=== PATIENT | male | born 1965 | race Caucasian/White ===

== ENCOUNTER 2019-10-03 17:28 | Emergency (ER) | payer BC, OTHER ==
[2019-10-03] MEDS ORDERED: Lidocaine 1% with EPINEPHrine 1:100,000 20 ML MDV INJECT ONE (18:34)
[2019-10-03] MEDS ORDERED: Sulfamethoxazole/Trimethoprim 800-160 MG Tab PO ONE (18:38)
[2019-10-03] MEDS ORDERED: Cephalexin 500 MG Cap PO ONE (18:38)
--- NOTE | 2019-10-03 19:04 | EDM.PDOC ---
ED HPI GENERAL MEDICAL PROBLEM - General Chief Complaint: Lower Extremity Injury/Pain Stated Complaint: LUMP ON LEG Time Seen by Provider: 10/03/19 18:59 Source of Information: Reports: Patient History Limitations: Reports: No Limitations - History of Present Illness INITIAL COMMENTS - FREE TEXT/NARRATIVE: Patient is a 53-year-old male with no significant past medical history presenting with a chief complaint of bump to the right inner thigh. Patient states he notes that is been there for several days. Patient has noted some scant discharge from the area. Patient denies any associated fevers, chills, nausea, vomiting. Patient does have pain in the area which does not radiate. Patient denies any dysuria or hematuria. Pmhx: None Pshx: None Family Hx: noncontributory Smoking history? no Etoh use? none Drug use? none In addition to that documented in the HPI above, the additional ROS was obtained : Constitutional: Denies fevers or chills Eyes: Denies vision changes ENMT: Denies sore throat CV: Denies chest pain Resp: Denies SOB GI: Denies vomiting or diarrhea : Denies painful urination MSK: Denies recent trauma Skin: Per HPI Neuro: Denies new numbness or tingling or weakness Endocrine: Denies unexpected weight loss Heme: Denies bleeding disorders I have reviewed the triage vital signs Const: Well nourished, well developed, appears stated age Eyes: PERRL, no conjunctival injection HENT: NCAT, Neck supple without meningismus CV: RRR, Warm, well-perfused extremities RESP: CTAB, Unlabored respiratory effort GI: soft, non-tender, non-distended, no masses MSK: No gross deformities appreciated Skin: Patient has warmth and erythema to the right medial thigh area. Patient has central area of fluctuance with pustular discharge. No extension into the perineum or to the scrotum. 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 Sensation and motor function of extremities grossly intact. Psych: Appropriate mood and affect Assessment and plan: Patient 53-year-old male presenting with cellulitis with abscess. Patient has no evidence of sepsis or systemic infection. Patient had I&D performed in the emergency department with no immediate complications. Patient started on oral antibiotics. Patient given strict return precautions. The area of cellulitis was marked with a marker. Indication: Abscess Supervising Architect: Janet Indications, risks, and benefits explained to patient and verbal informed consent obtained. Correct patient and procedure type was verified. 1) The patient was anesthetized using 8 cc lidocaine 1% w/epinephrine 2) Abscess Location: Right inner thigh 3) Abscess Size: 2 to 3 cm 4) Procedure description: A limited scalpel was used to incise the abscess. Blunt forceps were used for blunt dissection and breaking up of loculations. Copious pus was drained. Sterile dressing was placed. A clean dressing was applied. The patient tolerated the procedure with some minimal discomfort. Right Leg Pain Score (Numeric/FACES): 3 - Related Data Allergies Allergy/AdvReac Type Severity Reaction Status Date / Time banana [Banana] Allergy Difficulty Verified 12/20/13 15:26 Breathing grapefruit [Grapefruit] Allergy Diarrhea Verified 12/20/13 15:26 [place] Allergy Rash Verified 10/03/19 17:46 pineapple Allergy Rash Verified 10/03/19 17:46 [place] Allergy Rash Uncoded 12/20/13 15:26 Oranges Allergy Rash Uncoded 12/20/13 15:26 Home Meds: Home Meds Cephalexin [Keflex] 500 mg PO TID #21 capsule 10/03/19 [Rx] Sulfamethoxazole/Trimethoprim [Bactrim Ds Tablet] 1 each PO BID #10 tablet 10/03 [Rx] Past Medical History Other Musculoskeletal History: Hernia repair, broken blood vessel in gluteus laci. Psychiatric History: Reports: Anxiety, PTSD - Infectious Disease History Infectious Disease History: Reports: Chicken Pox - Past Surgical History Musculoskeletal Surgical History: Reports: Amputation Social & Family History - Tobacco Use Smoking Status *Q: Current Every Day Smoker Years of Tobacco use: 30 Packs/Tins Daily: 0.1 - Caffeine Use Caffeine Use: Reports: Coffee - Recreational Drug Use Recreational Drug Use: No Review of Systems - Review of Systems Review Of Systems: See Below ED EXAM, GENERAL - Physical Exam Exam: See Below Course - Vital Signs Last Recorded V/S: Last Vital Signs Temp 36.5 C 10/03/19 17:48 Pulse 102 H 10/03/19 17:48 Resp 16 10/03/19 17:48 BP 133/94 H 10/03/19 17:48 Pulse Ox 95 10/03/19 17:48 - Orders/Labs/Meds Meds: Medications Discontinued Medications Generic Name Dose Route Start Last Admin Trade Name Quynh PRN Reason Stop Dose Admin Cephalexin 500 mg 10/03/19 18:38 Keflex PO 10/03/19 18:39 ONETIME ONE Lidocaine/Epinephrine 20 ml 10/03/19 18:34 Xylocaine 1% With Epinephrine 1:100,000 INJECT 10/03/19 18:35 ONETIME ONE Trimethoprim/Sulfamethoxazole 1 tab 10/03/19 18:38 Septra Ds PO 10/03/19 18:39 ONETIME ONE Departure - Departure Time of Disposition: 19:03 Disposition: Home, Self-Care 01 Clinical Impression: Thigh abscess - Discharge Information Prescriptions: Cephalexin [Keflex] 500 mg PO TID #21 capsule Sulfamethoxazole/Trimethoprim [Bactrim Ds Tablet] 1 each PO BID #10 tablet Referrals: PCP,None [Primary Care Provider] - Sepsis Event Note - Evaluation Sepsis Screening Result: No Definite Risk - Focused Exam Vital Signs: Vital Signs Temp Pulse Resp BP Pulse Ox 10/03/19 17:48 36.5 C 102 H 16 133/94 H 95 Date Exam was Performed: 10/03/19 Time Exam was Performed: 18:59
== END 2019-10-03 19:25 | disposition home or self-care (01) ==
LOC: MW.ED 17:28
DX: L02.415 Cutaneous abscess of right lower limb (principal); F17.210 Nicotine dependence, cigarettes, uncomplicated; F41.9 Anxiety disorder, unspecified; Z91.018 Allergy to other foods
CPT/HCPCS: 10060; 99282; A9270

== ENCOUNTER 2023-05-03 13:44 | Emergency (ER) | payer OTHER, BC ==
[2023-05-03 14:17] LABS: BASOPHILS PERCENT AUTO 0.2 % (0.0-1.5); EOSINOPHILS PERCENT AUTO 0.2 % (0.0-7.0); HEMATOCRIT 44.3 % (38.0-50.0); HEMOGLOBIN 15.8 g/dL (13.0-17.0); LYMPHOCYTES ABSOLUTE AUTO 0.5 K/uL (0.6-2.4); LYMPHOCYTES PERCENT AUTO 9.1 % (16.0-40.0); MEAN CORPUSCULAR HEMOGLOBIN 32.6 pg (27.0-32.0); MEAN CORPUSCULAR HGB CONC 35.7 g/dL (31.0-37.0); MEAN CORPUSCULAR VOLUME 91.3 fL (80.0-98.0); MONOCYTES ABSOLUTE AUTO 0.2 K/uL (0.0-0.8); MONOCYTES PERCENT AUTO 2.9 % (0.0-15.0); NEUTROPHILS ABSOLUTE AUTO 5.2 K/uL (1.4-5.7); NEUTROPHILS PERCENT AUTO 87.6 % (48.0-80.0); NRBC ABSOLUTE 0 K/uL; PLATELET COUNT,PLT 153 K/uL (150-400); RED BLOOD CELL COUNT 4.85 M/uL (4.50-5.90); WHITE BLOOD CELL COUNT,WBC 5.95 K/uL (4.0-11.0)
[2023-05-03 14:43] LABS: A/G RATIO 0.6 (0.9-1.6); ALBUMIN 3.3 g/dL (3.4-5.0); BILIRUBIN TOTAL 0.4 mg/dL (0.2-1.0); CALCIUM 8.8 mg/dL (8.5-10.1); CARBON DIOXIDE,CO2 23.2 mmol/L (21.0-32.0); EST CRCL DRUG DOSING (CG) 83.47 mL/min; MAGNESIUM 1.6 mg/dL (1.8-2.4); PROTEIN TOTAL,TP 8.5 g/dL (6.4-8.2)
== END 2023-05-03 14:58 | disposition home or self-care (01) ==
LOC: MW.ED 13:44
DX: Z79.899 Other long term (current) drug therapy (principal); Z91.018 Allergy to other foods
CPT/HCPCS: 36415; 80053; 83735; 84484; 85025; 93005; 93010; 99284; 99285